=== PATIENT | female | born 1945 | race Caucasian/White ===

== ENCOUNTER 2021-09-05 17:25 | Observation (INO) ==
[2021-09-05 18:04] LABS: Basophils % 0.3 % (0.0-0.8); Eosinophils % 0.1 % (0.00-10.9); Hematocrit 35.5 VOL% (35.7-47.0); Immature Granulocytes % 0.6 %; Immature Granulocytes Absolute 0.06 #; Lymphocytes # 1.2 10*3/uL (1.4-4.0); Lymphocytes % 10.9 % (21.3-54.2); Mean Corpuscular HGB Conc 33.8 GM/DL (32-36); Monocytes # 0.3 10*3/uL (0.11-0.8); Monocytes % 2.3 % (1.7-12.7); Neutrophils % 85.8 % (38.7-73.9); Platelet Count 296 T/CUMM (130-400); Red Blood Count 3.66 MC/CUMM (3.8-5.5); Red Cell Distribution Width 14.6 % (9.3-17.3); White Blood Count 10.8 T/CUMM (4-12)
[2021-09-05 18:18] LABS: PT Patient Result 10.7 SECS (10.5-12.0); Partial Thromboplastin Time 27.9 SECS (23.8-32.1)
[2021-09-05] MEDS ORDERED: ONDANSETRON 4 MG/2 ML VIAL IV STA (18:25)
[2021-09-05] MEDS ORDERED: LORazepam 2 MG/1 ML VIAL IV STA (18:25)
[2021-09-05] MEDS ORDERED: MORPHINE 2 MG/1 ML SYRINGE IV STA (18:25)
[2021-09-05] MEDS ORDERED: ASPIRIN 325 MG TABLET PO STA (18:25)
[2021-09-05] MEDS ORDERED: NITROGLYCERIN 2% OINT 1 INCH/GM PACK TOP STA (18:25)
[2021-09-05 18:30] LABS: Albumin 3.6 G/DL (3.4-5.0); Calcium 9.3 MG/DL (8.5-10.1); Osmolality,Calculated 273.1 MOS/KG (273-304); Potassium 3.7 MMOL/L (3.5-5.1); Total Protein 6.9 G/DL (6.4-8.2)
[2021-09-05] MEDS ORDERED: ENOXAPARIN 100 MG/ML SYRINGE SUBCUT STA (19:27)
[2021-09-05] MEDS: ATORVASTATIN 20 MG TABLET PO SCH (21:40)
[2021-09-05 22:16] LABS: PT Patient Result 11.1 SECS (10.5-12.0); Partial Thromboplastin Time 34.7 SECS (23.8-32.1)
[2021-09-06] MEDS: LEVOTHYROXINE 88 MCG TABLET PO SCH (05:43)
[2021-09-06] MEDS ORDERED: ENOXAPARIN 80 MG/0.8 ML SYRINGE SUBCUT SCH (08:00)
[2021-09-06] MEDS: PANTOPRAZOLE 40 MG TABLET PO SCH (08:57)
[2021-09-06] MEDS: LOSARTAN 50 MG TABLET PO SCH (08:57)
[2021-09-06] MEDS: ESCITALOPRAM 10 MG TABLET PO SCH (08:57)
[2021-09-06] MEDS: MAGNESIUM CHLORIDE 64 MG TABLET PO SCH (08:57)
[2021-09-06] MEDS: FOLIC ACID 1 MG TABLET PO SCH (08:57)
[2021-09-06] MEDS: ATORVASTATIN 20 MG TABLET PO SCH (20:26)
[2021-09-06] MEDS: APIXABAN 5 MG TABLET PO SCH (20:26)
[2021-09-07] MEDS ORDERED: traMADol 50 MG TABLET PO PRN (00:08)
[2021-09-07 05:25] LABS: Basophils % 0.3 % (0.0-0.8); Eosinophils # 0.1 10*3/uL (0.0-0.87); Eosinophils % 0.7 % (0.00-10.9); Hematocrit 32.2 VOL% (35.7-47.0); Hemoglobin 10.6 GM/DL (12.0-16.0); Immature Granulocytes % 0.6 %; Immature Granulocytes Absolute 0.06 #; Lymphocytes % 27.5 % (21.3-54.2); Mean Corpuscular HGB Conc 32.9 GM/DL (32-36); Mean Corpuscular Volume 99.7 FL (87-102); Mean Platelet Volume 10.5 FL (9.6-12.0); Monocytes # 1.1 10*3/uL (0.11-0.8); Monocytes % 10.3 % (1.7-12.7); Neutrophils % 60.6 % (38.7-73.9); Platelet Count 291 T/CUMM (130-400); Red Blood Count 3.23 MC/CUMM (3.8-5.5); Red Cell Distribution Width 14.6 % (9.3-17.3); White Blood Count 10.8 T/CUMM (4-12)
[2021-09-07] MEDS: LEVOTHYROXINE 88 MCG TABLET PO SCH (05:44)
[2021-09-07 05:46] LABS: Osmolality,Calculated 281.4 MOS/KG (273-304); Potassium 3.5 MMOL/L (3.5-5.1)
[2021-09-07] MEDS: MAGNESIUM CHLORIDE 64 MG TABLET PO SCH (09:17)
[2021-09-07] MEDS: ESCITALOPRAM 10 MG TABLET PO SCH (09:18)
[2021-09-07] MEDS: LOSARTAN 50 MG TABLET PO SCH (09:18)
[2021-09-07] MEDS: APIXABAN 5 MG TABLET PO SCH (09:18)
[2021-09-07] MEDS: FOLIC ACID 1 MG TABLET PO SCH (09:18)
[2021-09-07] MEDS: PANTOPRAZOLE 40 MG TABLET PO SCH (09:18)
[2021-09-07 10:25] VITALS: BP 109/64
[2021-09-08] MEDS ORDERED: METHOTREXATE 2.5 MG TABLET PO SCH (09:00)
== END 2021-09-07 13:12 | disposition home or self-care (01) ==
LOC: N.ED 17:25 → N.EDINP 17:25 → SUATTDRO 22:27 → N.EDINP 09-06 02:56 → N.TELEN 09-06 03:52
PROVIDERS: ADMIT Hospitalist; ATTEND Internal Medicine